=== PATIENT | male | born 1995 | race African-American/Black ===

== ENCOUNTER 2022-11-11 11:10 | Emergency (ER) | payer OTHER, SELFPAY ==
[2022-11-11] VITALS (11 sets, daily range): BP systolic 122–152; BP diastolic 73–92; PULSE 41–58; RESP 15–16; TEMP 36.5; O2SAT 96–99; BMI 36.8
--- NOTE | 2022-11-11 11:18 | DI.RAD.S_ITS ---
PROCEDURE: XR CHEST 1V INDICATIONS: chest pain TECHNIQUE: One view of the chest was acquired. COMPARISON: None. FINDINGS: Surgical changes and devices: None. Lungs and pleura: Lungs are clear. No pleural effusions or pneumothorax. Mediastinum: Mediastinal contours appear normal. Heart size is normal. Bones and chest wall: No suspicious bony lesions. Overlying soft tissues appear unremarkable. IMPRESSION: No evidence acute pulmonary process. Dictated by: Roman Mendes M.D. on 11/11/2022 at 12:00 Approved by: Roman Mendes M.D. on 11/11/2022 at 12:00
[2022-11-11 11:38] LABS: Add Manual Diff / Slide Review NO; Basophils Absolute Auto 0 /uL (0-100); Basophils Percent Auto 0.5 % (0-2); Eosinophils Absolute Auto 0 /uL (0-450); Eosinophils Percent Auto 0.3 % (2-4); Hematocrit 40.5 % (41-53); Lymphocytes Absolute Auto 2300 /uL (1100-4500); Lymphocytes Percent Auto 30.7 % (25-40); Mean Corpuscular HGB Conc 34.5 % (30-36); Mean Corpuscular Hemoglobin 31.5 PG (26-34); Mean Corpuscular Volume 91.3 fL (80-100); Monocytes Absolute Auto 600 /uL (0-900); Monocytes Percent Auto 7.4 % (3-14); Neutrophils Absolute Auto 4600 /uL (1500-7000); Neutrophils Percent Auto 61.1 % (50-75); Platelet Count 253 X10^3/uL (150-400); Red Blood Cell Count 4.44 X10^6/uL (4.5-5.9); Red Cell Distribution Width 13.4 % (11.6-14.8); White Blood Cell Count 7.5 X10^3/uL (4.5-11.0)
[2022-11-11 11:42] LABS: INR 1.1 (0.9-1.3); Prothrombin Time 12.8 SECONDS (10.1-12.7)
[2022-11-11 11:44] LABS: PTT Partial Thromboplastin Tim 28 SECONDS (26-36)
[2022-11-11 11:48] LABS: Alanine Aminotransferase 23 IU/L (<50); Albumin 4.1 g/dL (3.5-5.0); Albumin Globulin Ratio 1.3 (1.0-2.8); Alkaline Phosphatase 59 U/L (38-126); Aspartate Aminotransferase 30 IU/L (17-59); BUN Creatinine Ratio 9.9 (6-22); Bilirubin Total 0.8 mg/dL (0.2-1.3); Blood Urea Nitrogen 9 mg/dL (9-20); Calcium 8.9 mg/dL (8.4-10.2); Carbon Dioxide 26 mmol/L (22-32); Chloride 104 mmol/L (98-107); Creatine Kinase 158 U/L (55-170); Estimated Glomerular Filt Rate > 60 mL/min (>60); Globulin 3.1 g/dL (1.7-4.1); Glucose 129 mg/dL (70-100); HEMOLYSIS < 15 (0-50); Lipase 45 U/L (23-300); Magnesium 1.6 mg/dL (1.6-2.3); Potassium 3.4 mmol/L (3.4-5.1); Sodium 138 mmol/L (137-145); Total Protein 7.2 g/dL (6.3-8.2)
[2022-11-11 11:58] LABS: Troponin I < 0.012 ng/mL (0.01-0.034)
[2022-11-11 12:29] LABS: D Dimer < 215 ng/ml (<500)
--- NOTE | 2022-11-11 12:39 | ED.CHESTPAIN ---
HPI - Chest Pain General Chief Complaint: Chest Pain Stated Complaint: chest tightness, sent by Time Seen by Provider: 11/11/22 11:56 Source: patient Mode of arrival: Ambulatory Limitations: no limitations History of Present Illness HPI narrative: Patient is a 27-year-old male history of smoking presenting today with chest discomfort. He reports that he was having some chest pain while at work a couple days ago. He reports that it was constant he was wearing a 20 lb security vest but he was sitting down. He did go to another facility where he had a workup which was negative he was discharged. He returns today day at request of a walk-in clinic he went to because he said last night he was having intermittent chest discomfort. He feels like it is a light pressure in his chest that is nonradiating he denies any shortness of breath. He reports that last night it was very intermittent. No nausea no vomiting. No abdominal pain. No family history of coronary artery disease. He denies any real provocation or palliation. He reports that he was playing basketball last week Related Data Previous Rx's Medication Instructions Recorded omeprazole 20 mg capsule,delayed 20 mg PO DAILY #30 caps 11/11/22 release Allergies Allergy/AdvReac Type Severity Reaction Status Date / Time No Known Drug Allergies Allergy Verified 11/11/22 11:27 Review of Systems Review of Systems ROS Unobtainable: All systems reviewed & are unremarkable except as noted in HPI and below Patient History Social History Smoking Status: Current every day smoker Smoking Status: Current every day smoker alcohol intake frequency: holidays/special occasions only Substance Use Type: does not use Exam Initial Vital Signs Initial Vital Signs: Vital Signs Temperature 97.7 F 11/11/22 11:10 Pulse Rate 53 L 11/11/22 11:10 Respiratory Rate 15 11/11/22 11:10 Blood Pressure 128/82 11/11/22 11:10 Pulse Oximetry 98 11/11/22 11:10 Oxygen Delivery Method Room Air 11/11/22 11:10 GENERAL: Alert 27-year-old male and in no acute distress. HEENT: Head atraumatic,EOMI, pupils reactive, face symmetric, moist mucous membranes CARDIOVASCULAR: Regular rate and rhythm without murmurs, rubs or gallops. RESPIRATORY: Breath sounds equal bilaterally, no wheezes rales or rhonchi. ABDOMEN: Soft, nontender. Normoactive bowel sounds all 4 quadrants. No guarding or rebound. : No CVA tenderness EXTREMITIES: Normal range of motion, no clubbing or edema. Neurovascularly intact NEUROLOGICAL: Alert and oriented x4. SKIN: Warm, dry, no laceration, no petechiae, no rashes or lesions. Scores HEART Score Heart Score history: Slightly Suspicious Heart Score EKG: Significant ST depression Heart Score Age: < 45 years old Heart Score risk factors: 1-2 risk factors Heart Score troponin: < or = to normal limit Heart Score Total: 3 Course Orders Ordered: ED Orders 11/11/22 11:18 XR chest 1V Stat 11/11/22 11:25 Complete Blood Count AUTO DIFF Stat Comprehensive Metabolic Panel Stat Lipase Stat Magnesium Stat PTT Partial Thromboplastin Jose Stat Prothrombin Time INR Stat Troponin & CK Cardiac Panel Stat 11/11/22 11:30 D Dimer Stat EKG-12 Lead Stat 11/11/22 13:10 EC echo doppler complete Stat Vital Signs Vital signs: Vital Signs - 8 hr 11/11/22 11:41 11/11/22 12:00 11/11/22 12:00 Pulse Rate 58 L 47 L Respiratory Rate Blood Pressure 132/80 Pulse Oximetry 99 98 Oxygen Delivery Method 11/11/22 12:30 11/11/22 12:30 11/11/22 13:00 Pulse Rate 50 L Respiratory Rate Blood Pressure 139/86 132/73 Pulse Oximetry 98 Oxygen Delivery Method 11/11/22 13:00 11/11/22 13:30 11/11/22 13:30 Pulse Rate 46 L 45 L Respiratory Rate Blood Pressure 144/86 H Pulse Oximetry 98 97 Oxygen Delivery Method 11/11/22 14:00 11/11/22 14:00 11/11/22 14:30 Pulse Rate 49 L Respiratory Rate Blood Pressure 151/86 H 151/87 H Pulse Oximetry 98 Oxygen Delivery Method 11/11/22 14:30 11/11/22 15:00 11/11/22 15:00 Pulse Rate 41 L 44 L Respiratory Rate Blood Pressure 152/79 H Pulse Oximetry 96 98 Oxygen Delivery Method 11/11/22 15:30 11/11/22 15:30 11/11/22 16:59 Pulse Rate 46 L 43 L Respiratory Rate 16 Blood Pressure 150/92 H 122/84 Pulse Oximetry 98 99 Oxygen Delivery Method Room Air MDM - Chest Pain Lab Data 11/11/22 11:25 11/11/22 11:25 Labs: Lab Results 11/11/22 11/11/22 11/11/22 Range/Units 11:25 11:25 11:25 WBC 7.5 (4.5-11.0) X10^3/uL RBC 4.44 L (4.5-5.9) X10^6/uL Hgb 14.0 (13.5-17.5) g/dL Hct 40.5 L (41-53) % MCV 91.3 (80-100) fL MCH 31.5 (26-34) PG MCHC 34.5 (30-36) % RDW 13.4 (11.6-14.8) % Plt Count 253 (150-400) X10^3/uL Neut % (Auto) 61.1 (50-75) % Lymph % (Auto) 30.7 (25-40) % [place] % (Auto) 7.4 (3-14) % Eos % (Auto) 0.3 L (2-4) % Baso % (Auto) 0.5 (0-2) % Neut # (Auto) 4600 (2363-4832) /uL Lymph # (Auto) 2300 (4942-6001) /uL [place] # (Auto) 600 (0-900) /uL Eos # (Auto) 0 (0-450) /uL Baso # (Auto) 0 (0-100) /uL PT 12.8 H (10.1-12.7) SECONDS INR 1.1 (0.9-1.3) APTT 28 (26-36) SECONDS D-Dimer (<500) ng/ml Sodium 138 (137-145) mmol/L Potassium 3.4 (3.4-5.1) mmol/L Chloride 104 (98-107) mmol/L Carbon Dioxide 26 (22-32) mmol/L BUN 9 (9-20) mg/dL Creatinine 0.91 (0.66-1.25) mg/dL Estimated GFR > 60 (>60) mL/min BUN/Creatinine Ratio 9.9 (6-22) Glucose 129 H (70-100) mg/dL Calcium 8.9 (8.4-10.2) mg/dL Magnesium 1.6 (1.6-2.3) mg/dL Total Bilirubin 0.8 (0.2-1.3) mg/dL AST 30 (17-59) IU/L ALT 23 (<50) IU/L Alkaline Phosphatase 59 (38-126) U/L Total Creatine Kinase 158 (55-170) U/L Troponin I < 0.012 (0.01-0.034) ng/mL Total Protein 7.2 (6.3-8.2) g/dL Albumin 4.1 (3.5-5.0) g/dL Globulin 3.1 (1.7-4.1) g/dL Albumin/Globulin Ratio 1.3 (1.0-2.8) Lipase 45 (23-300) U/L / Range/Units 11:30 WBC (4.5-11.0) X10^3/uL RBC (4.5-5.9) X10^6/uL Hgb (13.5-17.5) g/dL Hct (41-53) % MCV (80-100) fL MCH (26-34) PG MCHC (30-36) % RDW (11.6-14.8) % Plt Count (150-400) X10^3/uL Neut % (Auto) (50-75) % Lymph % (Auto) (25-40) % [place] % (Auto) (3-14) % Eos % (Auto) (2-4) % Baso % (Auto) (0-2) % Neut # (Auto) (7739-1939) /uL Lymph # (Auto) (3601-8219) /uL [place] # (Auto) (0-900) /uL Eos # (Auto) (0-450) /uL Baso # (Auto) (0-100) /uL PT (10.1-12.7) SECONDS INR (0.9-1.3) APTT (26-36) SECONDS D-Dimer < 215 (<500) ng/ml Sodium (137-145) mmol/L Potassium (3.4-5.1) mmol/L Chloride (98-107) mmol/L Carbon Dioxide (22-32) mmol/L BUN (9-20) mg/dL Creatinine (0.66-1.25) mg/dL Estimated GFR (>60) mL/min BUN/Creatinine Ratio (6-22) Glucose (70-100) mg/dL Calcium (8.4-10.2) mg/dL Magnesium (1.6-2.3) mg/dL Total Bilirubin (0.2-1.3) mg/dL AST (17-59) IU/L ALT (<50) IU/L Alkaline Phosphatase (38-126) U/L Total Creatine Kinase (55-170) U/L Troponin I (0.01-0.034) ng/mL Total Protein (6.3-8.2) g/dL Albumin (3.5-5.0) g/dL Globulin (1.7-4.1) g/dL Albumin/Globulin Ratio (1.0-2.8) Lipase (23-300) U/L Imaging Data Chest x-ray: Radiologist's Impression: PROCEDURE:? XR CHEST 1V ? INDICATIONS:? chest pain ? TECHNIQUE:? One view of the chest was acquired.? ? COMPARISON:? None. ? FINDINGS:? ? Surgical changes and devices:? None.? ? Lungs and pleura:? Lungs are clear.? No pleural effusions or pneumothorax.? ? Mediastinum:? Mediastinal contours appear normal.? Heart size is normal.? ? Bones and chest wall:? No suspicious bony lesions.? Overlying soft tissues appear unremarkable.? ? IMPRESSION:? No evidence acute pulmonary process. ? ? ? Dictated by: Roman Mendes M.D. on 11/11/2022 at 12:00 Echo: Radiologist's Impression: gram Report + + :Name: EULOGIO ALVARENGA ? ? ? Study Date: 11/11/2022 ? Height: 71 in? : :[facility] ? ? ReadingLocation: ? Weight: 264 lb : : ? Gender: Male ? BSA: 2.4 m2? ? : :: 1995? Age: 27 yrs? BP: 151/87 mmHg: :Reason For Study: ABNORMAL EKG WITH CHEST PAIN ? : :Ordering Physician: CHYNA ? : :LESLEE ? Performed By: Myriam Mcduffie? : :Referring: LESLEE CLEMENTE ? : + + Interpretation Summary The patient was in sinus bradycardia with heart rates between 43-53 bpm during the exam. ? The left ventricle is normal in size. There is borderline concentric left ventricular hypertrophy. The left ventricular ejection fraction is normal. The ejection fraction is estimated to be 60-65%. Diastolic parameters suggest probable normal left ventricular diastolic function and normal filling pressures. ? The right ventricle is mildly dilated. The right ventricular systolic function is normal. ? There is mild mitral regurgitation. ? The IVC is of normal diameter and collapses greater than 50% with a sniff. This suggests a low right atrial pressure of 3 mm Hg. ? BP: 151/87 mmHg ? Procedure: ? A two-dimensional transthoracic echocardiogram with color flow and Doppler was performed. The study quality was technically adequate. There is no prior echocardiogram noted for this patient. The patient was in sinus bradycardia with heart rates between 43-53 bpm during the exam. Left Ventricle: ? The left ventricle is normal in size. There is borderline concentric left ventricular hypertrophy. There is no thrombus. The ejection fraction is estimated to be 60-65%. The left ventricular ejection fraction is normal. There are no focal wall motion abnormalities. Diastolic parameters suggest probable normal left ventricular diastolic function and normal filling pressures. Right Ventricle: ? The right ventricle is mildly dilated. The right ventricular systolic function is normal. Atria: ? The left atrial size is normal. Right atrial size is normal. There is no Doppler evidence for an interatrial shunt. Mitral Valve: ? The mitral valve is normal in structure and function. There is mild mitral regurgitation. Aortic Valve: ? The aortic valve is trileaflet. The aortic valve opens well. There is no aortic valve stenosis. No aortic regurgitation is present. Tricuspid Valve: ? The tricuspid valve is normal in structure and function. There is trace tricuspid regurgitation. Pulmonary artery pressures cannot be estimated because of the lack of a measurable TR jet velocity. Pulmonic Valve: ? The pulmonic valve leaflets are thin and pliable; valve motion is normal. There is trace pulmonic regurgitation. Great Vessels: ? The aortic root is normal size. The IVC is of normal diameter and collapses greater than 50% with a sniff. This suggests a low right atrial pressure of 3 mm Hg. Pericardium/ Pleura ? There is no pericardial effusion. There is no pleural effusion. ? MMode/2D Measurements & Calculations LVIDd: 5.0 cm? LVOT diam: 2.5 cm LVIDs: 3.2 cm? Ao root diam: 3.1 cm FS: 36.8 % ? asc Aorta Diam: 2.9 cm IVSd: 0.98 cm? Ao Arch Diam (Prox Trans): 2.5 cm LVPWd: 1.1 cm LV portillo. diameter/BSA (cm/m^2): 2.1 LV sys. diameter/BSA (cm/m^2): 1.3 ? LA A2 area: 21.1 cm2 ? RA long axis: 4.9 cm LA A4 area: 18.6 cm2 ? RA area: 17.4 cm2 LA length (vol): 5.3 cm? RA vol: 53.1 ml LA vol: 62.9 ml? RA : 22.4 ml/m2 LA vol index: 26.5 ml/m2 ? IVC diam: 1.9 cm ? RVD1 (basal): 4.4 cm RVD2 (mid): 4.0 cm TAPSE: 1.9 cm ? Doppler Measurements & Calculations Ao V2 max: 127.1 cm/sec? LVOT Max Clem: 116.0 cm/sec Ao V2 mean: 91.0 cm/sec? LV V1 max P.4 mmHg Ao max P.5 mmHg? LV V1 VTI: 26.9 cm Ao mean P.7 mmHg ? MAKAYLA(I,D): 4.8 cm2 Ao V2 VTI: 28.1 cm ? MAKAYLA(V,D): 4.6 cm2 ? sev ratio: 0.96 ? MAKAYLA indexed to BSA (cm^2/m^2): 2.0 ? MV E max clem: 78.6 cm/sec? PA V2 max: 82.4 cm/sec MV A max clem: 42.5 cm/sec? PA V2 mean: 58.9 cm/sec MV E/A: 1.8? PA mean P.5 mmHg Med Peak E' Clem: 8.2 cm/sec? PA pr(Accel): 27.6 mmHg E/E' med: 9.6 Lat Peak E' Clem: 13.1 cm/sec E/E' lat: 6.0 E/e' average: 7.8 MV dec time: 0.20 sec ? Pulm A Revs Clem: 18.6 cm/sec ? ? ? SV(LVOT): 135.8 ml Pulm A Revs Dur: 0.11 sec ? Reading Physician:04:21 PM ECG Data Interpretation: Sinus rhythm rate 49 MI interval 166 QRS 102 QTC 395 T-wave inversions noted V3 through V6 lead 2 and lead [address] elevations similar to EKG done earlier today at the walk-in clinic MDM Narrative Medical decision making narrative: Is a healthy 27-year-old male without risk factors except for smoking heart score of 1 presents today for the 3rd time this week for some chest discomfort. It is intermittent it is not associated with shortness of breath. He feels a light pressure it is nonradiating very atypical for coronary artery disease. However his EKG does show who some T-wave inversions. He ruled out for pulmonary embolism with a D-dimer chest x-ray is negative he is not have any sort of infectious symptoms. He definitely does need further workup. Dr. Reeves cardiology on EKG changes and symptoms. Recommends an echocardiogram can be done as an outpatient but definitely needs close follow-up. Echo fortunately was able able to get done in the ED there is concentric left ventricular hypertrophy, no wall abnormalities. This time follow-up outpatient. Discharge Plan Departure Patient Disposition: Home Clinical Impression: Atypical chest pain Instructions: DI for Atypical Chest Pain Activity Restrictions/Additional Instructions: *You have been diagnosed with atypical chest pain *What to do: At this time please follow-up with her PCM. You may require more medication. Your echocardiogram suggests that you have left ventricular hypertrophy *Continue to take medications as directed *Follow up with your primary care provider in 2-3 days or call [phone] *Return to ER if you should have increasing chest pain shortness of breath or any new, worsening or concerning symptoms Prescriptions: New omeprazole 20 mg capsule,delayed release(DR/EC) 20 mg PO DAILY Qty: 30 0RF Stand Alone Forms: Patient Portal/API, Work Release Note
--- NOTE | 2022-11-11 13:10 | DI.ECHO.S_ITS ---
[facility] +---------+ : : [address] : : : : [id number] : : : : Phone: [phone] Echocardiogram Report + + :Name: EULOGIO ALVARENGA Study Date: 11/11/2022 Height: 71 in : :[facility] ReadingLocation: Weight: 264 lb : : Gender: Male BSA: 2.4 m2 : :: 1995 Age: 27 yrs BP: 151/87 mmHg: :Reason For Study: ABNORMAL EKG WITH CHEST PAIN : :Ordering Physician: CHYNA, : :MONTRELL Performed By: Myriam Mcduffie : :Referring: MONTRELL CLEMENTE : + + Interpretation Summary The patient was in sinus bradycardia with heart rates between 43-53 bpm during the exam. The left ventricle is normal in size. There is borderline concentric left ventricular hypertrophy. The left ventricular ejection fraction is normal. The ejection fraction is estimated to be 60-65%. Diastolic parameters suggest probable normal left ventricular diastolic function and normal filling pressures. The right ventricle is mildly dilated. The right ventricular systolic function is normal. There is mild mitral regurgitation. The IVC is of normal diameter and collapses greater than 50% with a sniff. This suggests a low right atrial pressure of 3 mm Hg. BP: 151/87 mmHg Procedure: A two-dimensional transthoracic echocardiogram with color flow and Doppler was performed. The study quality was technically adequate. There is no prior echocardiogram noted for this patient. The patient was in sinus bradycardia with heart rates between 43-53 bpm during the exam. Left Ventricle: The left ventricle is normal in size. There is borderline concentric left ventricular hypertrophy. There is no thrombus. The ejection fraction is estimated to be 60-65%. The left ventricular ejection fraction is normal. There are no focal wall motion abnormalities. Diastolic parameters suggest probable normal left ventricular diastolic function and normal filling pressures. Right Ventricle: The right ventricle is mildly dilated. The right ventricular systolic function is normal. Atria: The left atrial size is normal. Right atrial size is normal. There is no Doppler evidence for an interatrial shunt. Mitral Valve: The mitral valve is normal in structure and function. There is mild mitral regurgitation. Aortic Valve: The aortic valve is trileaflet. The aortic valve opens well. There is no aortic valve stenosis. No aortic regurgitation is present. Tricuspid Valve: The tricuspid valve is normal in structure and function. There is trace tricuspid regurgitation. Pulmonary artery pressures cannot be estimated because of the lack of a measurable TR jet velocity. Pulmonic Valve: The pulmonic valve leaflets are thin and pliable; valve motion is normal. There is trace pulmonic regurgitation. Great Vessels: The aortic root is normal size. The IVC is of normal diameter and collapses greater than 50% with a sniff. This suggests a low right atrial pressure of 3 mm Hg. Pericardium/ Pleura There is no pericardial effusion. There is no pleural effusion. MMode/2D Measurements & Calculations LVIDd: 5.0 cm LVOT diam: 2.5 cm LVIDs: 3.2 cm Ao root diam: 3.1 cm FS: 36.8 % asc Aorta Diam: 2.9 cm IVSd: 0.98 cm Ao Arch Diam (Prox Trans): 2.5 cm LVPWd: 1.1 cm LV portillo. diameter/BSA (cm/m^2): 2.1 LV sys. diameter/BSA (cm/m^2): 1.3 LA A2 area: 21.1 cm2 RA long axis: 4.9 cm LA A4 area: 18.6 cm2 RA area: 17.4 cm2 LA length (vol): 5.3 cm RA vol: 53.1 ml LA vol: 62.9 ml RA : 22.4 ml/m2 LA vol index: 26.5 ml/m2 IVC diam: 1.9 cm RVD1 (basal): 4.4 cm RVD2 (mid): 4.0 cm TAPSE: 1.9 cm Doppler Measurements & Calculations Ao V2 max: 127.1 cm/sec LVOT Max Clem: 116.0 cm/sec Ao V2 mean: 91.0 cm/sec LV V1 max P.4 mmHg Ao max P.5 mmHg LV V1 VTI: 26.9 cm Ao mean P.7 mmHg MAKAYLA(I,D): 4.8 cm2 Ao V2 VTI: 28.1 cm MAKAYLA(V,D): 4.6 cm2 sev ratio: 0.96 MAKAYLA indexed to BSA (cm^2/m^2): 2.0 MV E max clem: 78.6 cm/sec PA V2 max: 82.4 cm/sec MV A max clem: 42.5 cm/sec PA V2 mean: 58.9 cm/sec MV E/A: 1.8 PA mean P.5 mmHg Med Peak E' Clem: 8.2 cm/sec PA pr(Accel): 27.6 mmHg E/E' med: 9.6 Lat Peak E' Clem: 13.1 cm/sec E/E' lat: 6.0 E/e' average: 7.8 MV dec time: 0.20 sec Pulm A Revs Clem: 18.6 cm/sec SV(LVOT): 135.8 ml Pulm A Revs Dur: 0.11 sec Reading Physician:04:21 PM
== END 2022-11-11 17:00 | disposition home or self-care (01) ==
PROVIDERS: Emergency Provider Emergency Medicine
DX: R07.89 Other chest pain (principal)
CPT/HCPCS: 36415; 71045; 80053; 82550; 83690; 83735; 84484; 85025; 85379; 85610; 85730; 93005; 93306; 99283; 99284